=== PATIENT | male | born 1960 | race Hispanic/Latino ===

== ENCOUNTER → 2018-08-21 | Day surgery (SDC) | payer BC ==
[~2018-08-21] MED LIST: ASPIR 8181 MG; FENTANYL CITRATE/PF 100MCG/2 ML INJ ONE; GLUCAGON FOR INJ 1 MG VIAL ONE; HYOSCYAMINE SULFATE 0.5 MG/ML INJ ONE; LIDOCAINE HCL 2% LOCAL INJ 5 ML SDV VIAL INJ ONE; MIDAZOLAM HCL 2 MG/2 ML VIAL ONE; MULTI-VITAMIN1 EACH PO; OMEGA 3 XL; PROPOFOL IV EMULSION 10 MG/ML 50 ML VIAL ONE
--- NOTE | 2018-08-21 19:09 | Operative Report ---
DATE OF PROCEDURE: 08/21/2018 SURGEON: Ishmael Johnson MD PROCEDURE: Colonoscopy and polypectomy note. INDICATION FOR COLONOSCOPY: Colorectal cancer screening. MEDICATION: The patient was done under MAC. Please see anesthesiologist's note. PROCEDURE IN DETAIL: With the patient in left lateral decubitus position, the flexible fiberoptic Olympus colonoscope was inserted into the rectum with ease and advanced all the way to the cecum. It was then withdrawn slowly. Mucosa overlying the cecum appeared to be within normal limits. One polyp was hot biopsied from the ascending colon. One polyp was snared from the transverse colon. The polypectomy site was hemoclipped. Some minimal diverticulosis was noted in the distal transverse colon and possibly in the proximal descending colon. The rest of the descending and sigmoid appeared to be within normal limits. Two minute polyps were hot biopsied from the proximal rectum and approximately 1 cm polyp was snared from the distal rectum. The scope was then retroflexed into the distal rectum. Small internal hemorrhoids were noted, none of which was actively bleeding. The scope was then straightened out, it was subsequently withdrawn. The patient tolerated procedure well. IMPRESSION: 1. Ascending colon polyp, hot biopsied. 2. Transverse colon polyp, snared and site hemoclipped. 3. Diverticulosis, minimal distal transverse colon. 4. Proximal rectum, 2 minute polyps, hot biopsied. 5. Distal rectum, approximately 1 cm polyp removed per snare electrocautery. 6. Internal hemorrhoids, none actively bleeding. PLAN: Follow up pathology. Initiate high-fiber low-fat diet. Initiate high-fiber supplement. The patient might benefit from a followup colonoscopy in 3 years. MD ILIR Blunt/SENDY /[id number] cc: Yue Montanez MD
== END | disposition home or self-care (01) ==
LOC: OR 09:23
PROVIDERS: ATTEND Internal Medicine Gastroenterology
DX: Z12.11 Encounter for screening for malignant neoplasm of colon (principal); D12.2 Benign neoplasm of ascending colon; D12.3 Benign neoplasm of transverse colon; D12.8 Benign neoplasm of rectum; K57.30 Diverticulosis of large intestine without perforation or abscess without bleeding; K64.8 Other hemorrhoids; R03.0 Elevated blood-pressure reading, without diagnosis of hypertension; K21.9 Gastro-esophageal reflux disease without esophagitis; Z01.810 Encounter for preprocedural cardiovascular examination; Z79.82 Long term (current) use of aspirin; Z96.641 Presence of right artificial hip joint
CPT/HCPCS: 45384; 45385; 93005; J1610; J1980; J2001; J2250; J2704; 45378